=== PATIENT | female | born 1960 | race Caucasian/White ===

== ENCOUNTER → 2016-03-29 | Day surgery (SDC) | payer OTHER ==
[~2016-03-29] MED LIST: ACETAMINOPHEN 1000 MG/100 ML VIAL IV ONE; BUPIVACAINE/EPINEPHRINE 0.25% 50 ML VIAL ONE; BUPIVACAINE/EPINEPHRINE 0.5% PF 30 ML VIAL ONE; CITA20TA4 PO; ISOSULFAN BLUE 50 MG/5 ML VIAL SQ ONE; LACTATED RINGER'S 1000 ML INJ 1,000 ML ONE; LEVO.05 PO; LIDOCAINE 1%/EPINEPHrine 1:100,000 SOLN 30 ML VIAL ONE; LISI-360 PO; METO25CR PO; MIDAZOLAM HCL 2 MG/2 ML VIAL ONE; ONDANSETRON HCL 4 MG/2 ML VIAL IV PUSH ONE; PROPOFOL 200 MG/20 ML AMP IV ONE; ZOLP1TAB32 PO
--- NOTE | 2016-03-29 10:27 | TN ---
cc: POONAM SANTILLAN MD DATE OF SURGERY: 03/29/2016 PREOPERATIVE DIAGNOSIS Left clavicle lipoma, 3 x 4 cm. POSTOPERATIVE DIAGNOSIS Left clavicle lipoma, 3 x 4 cm. PROCEDURE Excision 3 x 4 cm left clavicle lipoma. 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 ESTIMATED BLOOD LOSS 5 cc. ANESTHESIA General via LMA. COMPLICATIONS None apparent. PROCEDURE IN DETAIL The patient was taken to the operating room and placed in supine position. General anesthesia via LMA was induced. The left upper chest clavicle area was prepped and draped in usual sterile fashion. A surgical timeout was performed to verify correct patient, procedure and site. An approximately 3 cm incision was made along the inferior border of the clavicle. Electrocautery was used to dissect through subcutaneous tissue. Careful dissection revealed a 3 x 4 cm intramuscular lipoma. A small amount of muscle tissue was divided. The lipoma was originating from deeper in the deltopectoral groove. It was fully removed. Hemostasis was achieved. The incision was then closed in two layers with deep 3-0 Vicryl interrupted and subcuticular 4-0 Monocryl as well as Dermabond. The patient tolerated the procedure well, was extubated and taken to PACU in stable condition. Poonam Santillan MD JPD/BT /10:05 AM /10:13 AM
== END | disposition home or self-care (01) ==
LOC: ESDC 07:23
PROVIDERS: ATTEND Surgery
DX: D17.1 Benign lipomatous neoplasm of skin and subcutaneous tissue of trunk (principal)
CPT/HCPCS: 00400; 21552; 88304; J0131; J2250; J2405; J3010; J7120; 88305; Q9968